=== PATIENT | female | born 1980 | race Caucasian/White ===

== ENCOUNTER 2016-10-08 18:51 | Inpatient (IN) | payer BC ==
[2016-10-08] MEDS ORDERED: ceFAZolin 2 GM in Sodium Chloride 0.9% 100 ML IV ONE (19:45)
[2016-10-08] MEDS ORDERED: Sodium Chloride 0.9% 10 ML Syringe FLUSH PRN (19:45)
[2016-10-08] MEDS ORDERED: Ondansetron 4 MG/2 ML SDV IVPUSH ONE (20:10)
[2016-10-08] MEDS ORDERED: Dexamethasone 4 MG/ML 5 ML MDV IVPUSH ONE (20:10)
[2016-10-08] MEDS ORDERED: Lactated Ringers 1,000 ML IV ONE (20:10)
[2016-10-08] MEDS ORDERED: Ketorolac 30 MG/ML SDV IVPUSH ONE (20:10)
[2016-10-08] MEDS ORDERED: ceFAZolin 1 GM Vial IV ONE (20:10)
[2016-10-08] MEDS ORDERED: Lidocaine 2% 100 MG/5 ML Syringe IVPUSH ONE (20:10)
[2016-10-08] MEDS ORDERED: Rocuronium 50 MG/5 ML Vial IV ONE (20:10)
[2016-10-08] MEDS ORDERED: fentaNYL 100 MCG/2 ML SDV IV ONE (20:10)
[2016-10-08] MEDS ORDERED: Midazolam 1 MG/ML 2 ML SDV IV ONE (20:10)
[2016-10-08] MEDS ORDERED: Propofol 200 MG/20 ML SDV IV ONE (20:10)
[2016-10-08] MEDS ORDERED: HYDROmorphone 2 MG/ML SDV IV ONE (20:10)
[2016-10-08] MEDS ORDERED: Bupivacaine 0.5%/EPINEPHrine 1:200,000 50 ML MDV ONE (20:33)
[2016-10-08] MEDS ORDERED: Acetaminophen/HYDROcodone 325-5 MG Tab PO PRN ×2 (23:06)
[2016-10-08] MEDS ORDERED: Ondansetron 4 MG/2 ML SDV IVPUSH PRN (23:06)
--- NOTE | 2016-10-08 23:06 | PCM.OPNOTE ---
- General Post-Op/Procedure Note Date of Surgery/Procedure: 10/08/16 Operative Procedure(s): Laproscopic Cholecystectomy Findings: Severely acutely inflamed gallbladder with stones Pre Op Diagnosis: Acute Cholecystitis with Cholelithiasis Post-Op Diagnosis: Same Anesthesia Technique: General ET tube Primary Surgeon: Bassam Alvarado Pathology: Gallbladder with stones Output, Urine Amount: 0 EBL in mLs: 50 Complications: None Condition: Good Free Text/Narrative:: Intake & Output 10/08/16 10/08/16 10/09/16 14:59 22:59 06:59 Intake Total 1000 Output Total 30 Balance 970
[2016-10-08] MEDS ORDERED: Lactated Ringers 1,000 ML IV SCH (23:15)
[2016-10-08] MEDS: Lactated Ringers 1,000 ML IV SCH (23:43)
[2016-10-09] MEDS: levETIRAcetam 500 MG Tab PO SCH ×2 (00:11→10:00)
[2016-10-09] MEDS: lamoTRIgine 100 MG Tab PO SCH ×2 (00:12→10:00)
[2016-10-09] MEDS: Piperacillin/Tazobactam 3.375 GM in Sodium Chloride 0.9% 50 ML IV SCH ×3 (00:22→12:48)
--- NOTE | 2016-10-09 03:31 | OR ---
DATE OF OPERATION: 10/08/2016 SURGEON: Bassam Alvarado MD PREOPERATIVE DIAGNOSIS: Acute cholecystitis with cholelithiasis. POSTOPERATIVE DIAGNOSIS: Acute cholecystitis with cholelithiasis. OPERATION PERFORMED: Laparoscopic cholecystectomy. INDICATIONS FOR SURGERY: This 36-year-old female presented to the outpatient clinic with a 2-day history of right upper quadrant abdominal pain which had gotten much worse today. Workup has identified findings consistent with acute cholecystitis with cholelithiasis on CT scan and she has an elevated serum white blood cell count along with severe right upper quadrant pain and tenderness. FINDINGS: The patient's gallbladder is severely acutely inflamed. It is dilated and contains multiple stones both small and large. The omentum is firmly adherent to the entire undersurface of the gallbladder as well as the undersurface of the liver to the left side of the gallbladder. Some of these adhesions are dense and very vascular. No other intraabdominal organs are noted to be abnormal on exam. PROCEDURE IN DETAIL: The patient was taken to the operating room. She was given general endotracheal anesthesia and the abdomen was sterilely prepped and draped. An infraumbilical stab wound incision was made. Through this, a Veress needle was inserted and pneumoperitoneum via this needle to a pressure of 15 mmHg was achieved with carbon dioxide. The Veress needle was then replaced with a 12 mm trocar into which the 5 mm variable angled laparoscopic camera was inserted. Under direct visualization, 5 mm trocars were placed in the subxiphoid midline and in 2 areas of the right abdomen. All trocar sites were infiltrated with Marcaine prior to incision. Intra-abdominal inspection was carried out and attention was turned to the gallbladder. The upper portion of the gallbladder is exposed by carefully freeing the dense omental adhesions from its undersurface. The gallbladder was quite distended and tense and it is decompressed with a needle to allow it to be able to be grasped and manipulate it. Continued careful dissection was then carried out gradually freeing the omentum from the undersurface of the liver using careful blunt and cautery dissection. This took a prolonged period of time to safely perform this, but eventually, the omentum was freed from the undersurface adjacent to the gallbladder so that the gallbladder could be completely exposed. Dissection at the base of the gallbladder identified the cystic duct and additional dissection identified the area of the cystic artery. This tissue was very inflamed, dissection was difficult, and in order to safely expose the cystic artery so that it could be clipped, the cystic duct had to be divided first. Careful dissection positively identified the cystic duct including its junction with the gallbladder. The cystic duct was then milked and doubly clipped and divided right at its junction with the gallbladder. This allowed enough mobilization of the gallbladder, so that the cystic artery could be identified, clipped, and divided maintaining good hemostasis while doing this. Once the cystic artery was secured and divided, the gallbladder was dissected free from the undersurface of the liver using the cautery device. Because of the severe inflammation, this also was somewhat difficult, but eventually was able to be safely accomplished with the gallbladder being completely removed. It was placed into an endo retrieval bag and then extracted through the umbilical trocar site without spillage of any stones intra-abdominally. Reinspection of the gallbladder bed was performed and copious irrigation of the operative region was carried out. No evidence of any bleeding or other complication was noted. After the irrigation had been performed, the trocars were removed under direct visualization and the pneumoperitoneum was evacuated. The fascia at the umbilical trocar site was closed with a [id number] 0 Vicryl suture. Wounds were irrigated with Betadine and saline solution. Skin incisions were approximated with interrupted 4-0 Vicryl in a subcuticular stitch, Steri-Strips, and Benzoin. Antibiotic ointment and sterile dressings were placed. The patient was then awakened, extubated, and taken from the operating room in satisfactory condition. ESTIMATED BLOOD LOSS: 50 mL. COMPLICATIONS: None. PROGNOSIS: Good. /[id number] MYAH/YAZ
[2016-10-09] MEDS: Lactated Ringers 1,000 ML IV SCH (04:31)
[2016-10-09] MEDS: Morphine 2 MG/ML Syringe IVPUSH PRN ×2 (04:36→05:44)
[2016-10-09 08:43] VITALS: BP 100/65
--- NOTE | 2016-10-09 09:41 | PCM.SURGPN ---
- General Info Date of Service: 10/09/16 Date of Surgery/Procedure: 10/08/16 POD#: 1 Post-Op Diagnosis: Acute Cholecystitis with Cholelithiasis Functional Status: Reports: other (Pain much better then preop but still using Morphine for pain control) - Review of Systems Pulmonary: Reports: other (some chest pressure with deep breaths) Gastrointestinal: Denies: Nausea, Vomiting Musculoskeletal: Reports: no symptoms - Patient Data Vitals - most recent: Last Vital Signs Temp 98.6 F 10/09/16 08:39 Pulse 75 10/09/16 08:39 Resp 18 10/09/16 08:39 BP 100/65 10/09/16 08:39 Pulse Ox 98 10/09/16 08:39 Weight - most recent: 198 lb 2 oz I&O - last 24 hours: Intake & Output 10/08/16 10/09/16 10/09/16 22:59 06:59 14:59 Intake Total 1000 450 Output Total 30 400 500 Balance 970 -400 -50 Lab Results last 24 hrs: Laboratory Results - last 24 hr 10/08/16 10/09/16 10/09/16 Range/Units 19:15 06:20 06:20 WBC 14.1 H (4.5-12.0) X10-3/uL RBC 4.18 (3.23-5.20) x10(6)uL Hgb 12.5 (11.5-15.5) g/dL Hct 37.0 (30.0-51.3) % MCV 88.7 (80-96) fL MCH 29.8 (27.7-33.6) pg MCHC 33.6 (32.2-35.4) g/dL RDW 13.0 (11.5-15.5) % Plt Count 252 (125-369) X10(3)uL MPV 8.2 (7.4-10.4) fL Add Manual Diff Yes Neutrophils % (Manual) 89 H (46-82) % Band Neutrophils % 1 (0-6) % Lymphocytes % (Manual) 7 L (13-37) % Monocytes % (Manual) 3 L (4-12) % Toxic Granulation Few H (NOT SEEN) Sodium 136 (135-145) mmol/L Potassium 4.2 (3.5-5.3) mmol/L Chloride 105 (100-110) mmol/L Carbon Dioxide 24 (23-29) mmol/L BUN 10 (5-20) mg/dL Creatinine 0.7 (0.6-1.3) mg/dL Est Cr Clr Drug Dosing 99.98 mL/min Estimated GFR (MDRD) > 60 (>60) BUN/Creatinine Ratio 14.3 (9-20) Glucose 146 H (80-116) mg/dL Calcium 8.8 (8.6-10.2) mg/dL Total Bilirubin 0.9 (0.1-1.3) mg/dL AST 27 D (5-27) IU/L ALT 24 (14-26) IU/L Alkaline Phosphatase 41 L (56-112) IU/L Total Protein 6.2 (6.0-8.0) g/dL Albumin 3.4 L (3.5-5.2) g/dL Globulin 2.8 g/dL Albumin/Globulin Ratio 1.2 Urine HCG, Qual Negative (NEGATIVE) Med Orders - Current: Current Medications Hydrocodone Bitart/Acetaminophen ([place] 325-5 Mg) 1 tab PO Q4H PRN PRN Reason: Pain (mild 1-3) Last Admin: 10/09/16 08:18 Dose: 1 tab Hydrocodone Bitart/Acetaminophen ([place] 325-5 Mg) 2 tab PO Q4H PRN PRN Reason: Pain (moderate 4-6) Lactated Ringer's (Ringers, Lactated) 1,000 mls @ 125 mls/hr IV ASDIRECTED [facility] Last Admin: 10/09/16 04:31 Dose: 125 mls/hr Lactated Ringer's (Ringers, Lactated) 1,000 mls @ 50 mls/hr IV ASDIRECTED [facility] Piperacillin Sod/Tazobactam (Sod 3.375 gm/ Sodium Chloride) 50 mls @ 100 mls/ hr IV Q6H [facility] Last Admin: 10/09/16 05:00 Dose: 100 mls/hr Lamotrigine (Lamotrigine) 150 mg PO BID [facility] Last Admin: 10/09/16 00:12 Dose: Not Given Levetiracetam (Keppra) 500 mg PO DAILY [facility] Last Admin: 10/09/16 00:11 Dose: Not Given Morphine Sulfate (Morphine) 2 mg IVPUSH Q1H PRN PRN Reason: Pain (severe 7-10) Last Admin: 10/09/16 05:44 Dose: 2 mg Ondansetron HCl (Zofran) 4 mg IVPUSH Q6H PRN PRN Reason: Nausea/Vomiting Sodium Chloride (Saline Flush) 10 ml FLUSH ASDIRECTED PRN PRN Reason: Keep Vein Open Discontinued Medications Bupivacaine HCl/Epinephrine Bitart (Marcaine 0.5%/Epinephrine 1:200,000) 20 ml .XX .STK-MED ONE Stop: 10/08/16 20:34 Last Admin: 10/08/16 20:33 Dose: 20 ml Cefazolin Sodium 2 gm/ Sodium (Chloride) 100 mls @ 200 mls/hr IV ONETIME ONE Stop: 10/08/16 20:14 Last Admin: 10/08/16 20:41 Dose: Not Given - Exam Wound/Incisions: dressing dry and intact General: alert, oriented Lungs: Normal respiratory effort Abdomen: soft, tenderness (moderate tenderness diffusely) Extremities: no tenderness/swelling - Problem List Review Problem List Initiated/Reviewed/Updated: Yes - My Orders Last 24 Hours: Active Orders 24 hr Category Date Time Status Patient Status [ADT] Routine ADT 10/08/16 23:06 Active Ambulate [RC] ASDIRECTED Care 10/08/16 23:06 Active Antiembolic Devices [RC] .Routine Care 10/08/16 23:10 Active Intake and Output [RC] QSHIFT Care 10/08/16 23:08 Active Oxygen Therapy [RC] PRN Care 10/08/16 23:06 Active RT Incentive Spirometry [RC] Q1HWA Care 10/08/16 23:06 Active Vital Signs [RC] PER UNIT ROUTINE Care 10/08/16 23:06 Active Full Liquid Diet [DIET] Diet 10/09/16 Breakfast Ordered Acetaminophen/HYDROcodone [[place] 325-5 MG] Med 10/08/16 23:06 Active 1 tab PO Q4H PRN Acetaminophen/HYDROcodone [[place] 325-5 MG] Med 10/08/16 23:06 Active 2 tab PO Q4H PRN Lactated Ringers [Ringers, Lactated] 1,000 ml Med 10/08/16 19:45 Active IV ASDIRECTED Lactated Ringers [Ringers, Lactated] 1,000 ml Med 10/08/16 23:15 Active IV ASDIRECTED Morphine Med 10/08/16 23:06 Active 2 mg IVPUSH Q1H PRN Ondansetron [Zofran] Med 10/08/16 23:06 Active 4 mg IVPUSH Q6H PRN Piperacillin/Tazobactam [Zosyn] 3.375 gm Med 10/09/16 00:00 Active Sodium Chloride 0.9% [Normal Saline] 50 ml IV Q6H Sodium Chloride 0.9% [Saline Flush] Med 10/08/16 19:45 Active 10 ml FLUSH ASDIRECTED PRN lamoTRIgine Med 10/08/16 23:15 Active 150 mg PO BID levETIRAcetam [Keppra] Med 10/08/16 23:15 Active 500 mg PO DAILY DVT/VTE Prophylaxis Reflex [OM.PC] Per Unit Routine Oth 10/08/16 23:10 Ordered Peripheral IV Insertion Adult [OM.PC] Routine Oth 10/08/16 19:45 Ordered Sequential Compression Device [OM.PC] Routine Oth 10/08/16 19:45 Ordered Sequential Compression Device [OM.PC] Routine Oth 10/08/16 23:06 Ordered Resuscitation Status Routine Resus Stat 10/08/16 19:45 Ordered Medication Orders Hydrocodone Bitart/Acetaminophen ([place] 325-5 Mg) 1 tab PO Q4H PRN PRN Reason: Pain (mild 1-3) Last Admin: 10/09/16 08:18 Dose: 1 tab Hydrocodone Bitart/Acetaminophen ([place] 325-5 Mg) 2 tab PO Q4H PRN PRN Reason: Pain (moderate 4-6) Lactated Ringer's (Ringers, Lactated) 1,000 mls @ 125 mls/hr IV ASDIRECTED [facility] Last Admin: 10/09/16 04:31 Dose: 125 mls/hr Infusion: 10/09/16 04:31 Dose: 125 mls/hr Admin: 10/08/16 23:43 Dose: 125 mls/hr Lactated Ringer's (Ringers, Lactated) 1,000 mls @ 50 mls/hr IV ASDIRECTED [facility] Piperacillin Sod/Tazobactam (Sod 3.375 gm/ Sodium Chloride) 50 mls @ 100 mls/ hr IV Q6H [facility] Last Admin: 10/09/16 05:00 Dose: 100 mls/hr Admin: 10/09/16 00:22 Dose: 100 mls/hr Lamotrigine (Lamotrigine) 150 mg PO BID [facility] Last Admin: 10/09/16 00:12 Dose: Levetiracetam (Keppra) 500 mg PO DAILY [facility] Last Admin: 10/09/16 00:11 Dose: Not Given Morphine Sulfate (Morphine) 2 mg IVPUSH Q1H PRN PRN Reason: Pain (severe 7-10) Last Admin: 10/09/16 05:44 Dose: 2 mg Admin: 10/09/16 04:36 Dose: 2 mg Ondansetron HCl (Zofran) 4 mg IVPUSH Q6H PRN PRN Reason: Nausea/Vomiting Sodium Chloride (Saline Flush) 10 ml FLUSH ASDIRECTED PRN PRN Reason: Keep Vein Open - Assessment Assessment (Free Text/Narrative):: Stable POD#1 from [facility] for severe acute cholecystitis still not eating well and using IV pain medication - Plan Plan (Free Text/Narrative):: Try to advance diet slow IV trial or PO pain medication continue antibiotics
--- NOTE | 2016-10-09 15:49 | PCM.SURGPN ---
- General Info Date of Service: 10/09/16 Date of Surgery/Procedure: 10/08/16 Functional Status: Reports: pain controlled (tolerting it well with oral agents) - Review of Systems Gastrointestinal: Reports: Other (tolerating light diet well). Denies: Nausea, Vomiting - Patient Data Vitals - most recent: Last Vital Signs Temp 98.6 F 10/09/16 08:39 Pulse 75 10/09/16 08:39 Resp 18 10/09/16 08:39 BP 100/65 10/09/16 08:39 Pulse Ox 98 10/09/16 08:39 Weight - most recent: 198 lb 2 oz I&O - last 24 hours: Intake & Output 10/09/16 10/09/16 10/09/16 06:59 14:59 22:59 Intake Total 450 Output Total 400 500 Balance -400 -50 Lab Results last 24 hrs: Laboratory Results - last 24 hr 10/08/16 10/09/16 10/09/16 Range/Units 19:15 06:20 06:20 WBC 14.1 H (4.5-12.0) X10-3/uL RBC 4.18 (3.23-5.20) x10(6)uL Hgb 12.5 (11.5-15.5) g/dL Hct 37.0 (30.0-51.3) % MCV 88.7 (80-96) fL MCH 29.8 (27.7-33.6) pg MCHC 33.6 (32.2-35.4) g/dL RDW 13.0 (11.5-15.5) % Plt Count 252 (125-369) X10(3)uL MPV 8.2 (7.4-10.4) fL Add Manual Diff Yes Neutrophils % (Manual) 89 H (46-82) % Band Neutrophils % 1 (0-6) % Lymphocytes % (Manual) 7 L (13-37) % Monocytes % (Manual) 3 L (4-12) % Toxic Granulation Few H (NOT SEEN) Sodium 136 (135-145) mmol/L Potassium 4.2 (3.5-5.3) mmol/L Chloride 105 (100-110) mmol/L Carbon Dioxide 24 (23-29) mmol/L BUN 10 (5-20) mg/dL Creatinine 0.7 (0.6-1.3) mg/dL Est Cr Clr Drug Dosing 99.98 mL/min Estimated GFR (MDRD) > 60 (>60) BUN/Creatinine Ratio 14.3 (9-20) Glucose 146 H (80-116) mg/dL Calcium 8.8 (8.6-10.2) mg/dL Total Bilirubin 0.9 (0.1-1.3) mg/dL AST 27 D (5-27) IU/L ALT 24 (14-26) IU/L Alkaline Phosphatase 41 L (56-112) IU/L Total Protein 6.2 (6.0-8.0) g/dL Albumin 3.4 L (3.5-5.2) g/dL Globulin 2.8 g/dL Albumin/Globulin Ratio 1.2 Urine HCG, Qual Negative (NEGATIVE) Med Orders - Current: Current Medications Hydrocodone Bitart/Acetaminophen ([place] 325-5 Mg) 1 tab PO Q4H PRN PRN Reason: Pain (mild 1-3) Last Admin: 10/09/16 08:18 Dose: 1 tab Hydrocodone Bitart/Acetaminophen ([place] 325-5 Mg) 2 tab PO Q4H PRN PRN Reason: Pain (moderate 4-6) Last Admin: 10/09/16 13:55 Dose: 2 tab Lactated Ringer's (Ringers, Lactated) 1,000 mls @ 125 mls/hr IV ASDIRECTED [facility] Last Admin: 10/09/16 04:31 Dose: 125 mls/hr Lactated Ringer's (Ringers, Lactated) 1,000 mls @ 50 mls/hr IV ASDIRECTED [facility] Piperacillin Sod/Tazobactam (Sod 3.375 gm/ Sodium Chloride) 50 mls @ 100 mls/ hr IV Q6H [facility] Last Admin: 10/09/16 12:48 Dose: 100 mls/hr Lamotrigine (Lamotrigine) 150 mg PO BID [facility] Last Admin: 10/09/16 10:00 Dose: 150 mg Levetiracetam (Keppra) 500 mg PO DAILY [facility] Last Admin: 10/09/16 10:00 Dose: 500 mg Morphine Sulfate (Morphine) 2 mg IVPUSH Q1H PRN PRN Reason: Pain (severe 7-10) Last Admin: 10/09/16 05:44 Dose: 2 mg Ondansetron HCl (Zofran) 4 mg IVPUSH Q6H PRN PRN Reason: Nausea/Vomiting Sodium Chloride (Saline Flush) 10 ml FLUSH ASDIRECTED PRN PRN Reason: Keep Vein Open Discontinued Medications Bupivacaine HCl/Epinephrine Bitart (Marcaine 0.5%/Epinephrine 1:200,000) 20 ml .XX .STK-MED ONE Stop: 10/08/16 20:34 Last Admin: 10/08/16 20:33 Dose: 20 ml Cefazolin Sodium 2 gm/ Sodium (Chloride) 100 mls @ 200 mls/hr IV ONETIME ONE Stop: 10/08/16 20:14 Last Admin: 10/08/16 20:41 Dose: Not Given Piperacillin Sod/Tazobactam Sod (Zosyn) Confirm Administered Dose 3.375 gm .ROUTE .STK-MED ONE Stop: 10/09/16 12:24 Last Admin: 10/09/16 13:54 Dose: Not Given - Exam Wound/Incisions: healing well, drainage (minimal). No: erythema General: alert, oriented Abdomen: soft, tenderness (mild in RUQ otherwise non tender) - Problem List Review Problem List Initiated/Reviewed/Updated: Yes - My Orders Last 24 Hours: Active Orders 24 hr Category Date Time Status Patient Status [ADT] Routine ADT 10/08/16 23:06 Active Ambulate [RC] ASDIRECTED Care 10/08/16 23:06 Active Antiembolic Devices [RC] .Routine Care 10/08/16 23:10 Active Intake and Output [RC] QSHIFT Care 10/08/16 23:08 Active Oxygen Therapy [RC] PRN Care 10/08/16 23:06 Active RT Incentive Spirometry [RC] Q1HWA Care 10/08/16 23:06 Active Ready for Discharge [RC] PER UNIT ROUTINE Care 10/09/16 15:46 Ordered Vital Signs [RC] PER UNIT ROUTINE Care 10/08/16 23:06 Active Full Liquid Diet [DIET] Diet 10/09/16 Breakfast Active Acetaminophen/HYDROcodone [[place] 325-5 MG] Med 10/08/16 23:06 Active 1 tab PO Q4H PRN Acetaminophen/HYDROcodone [[place] 325-5 MG] Med 10/08/16 23:06 Active 2 tab PO Q4H PRN Lactated Ringers [Ringers, Lactated] 1,000 ml Med 10/08/16 19:45 Active IV ASDIRECTED Lactated Ringers [Ringers, Lactated] 1,000 ml Med 10/08/16 23:15 Active IV ASDIRECTED Morphine Med 10/08/16 23:06 Active 2 mg IVPUSH Q1H PRN Ondansetron [Zofran] Med 10/08/16 23:06 Active 4 mg IVPUSH Q6H PRN Piperacillin/Tazobactam [Zosyn] 3.375 gm Med 10/09/16 00:00 Active Sodium Chloride 0.9% [Normal Saline] 50 ml IV Q6H Sodium Chloride 0.9% [Saline Flush] Med 10/08/16 19:45 Active 10 ml FLUSH ASDIRECTED PRN lamoTRIgine Med 10/08/16 23:15 Active 150 mg PO BID levETIRAcetam [Keppra] Med 10/08/16 23:15 Active 500 mg PO DAILY DVT/VTE Prophylaxis Reflex [OM.PC] Per Unit Routine Oth 10/08/16 23:10 Ordered Peripheral IV Insertion Adult [OM.PC] Routine Oth 10/08/16 19:45 Ordered Sequential Compression Device [OM.PC] Routine Oth 10/08/16 19:45 Ordered Sequential Compression Device [OM.PC] Routine Oth 10/08/16 23:06 Ordered Resuscitation Status Routine Resus Stat 10/08/16 19:45 Ordered Medication Orders Hydrocodone Bitart/Acetaminophen ([place] 325-5 Mg) 1 tab PO Q4H PRN PRN Reason: Pain (mild 1-3) Last Admin: 10/09/16 08:18 Dose: 1 tab Hydrocodone Bitart/Acetaminophen ([place] 325-5 Mg) 2 tab PO Q4H PRN PRN Reason: Pain (moderate 4-6) Last Admin: 10/09/16 13:55 Dose: 2 tab Lactated Ringer's (Ringers, Lactated) 1,000 mls @ 125 mls/hr IV ASDIRECTED [facility] Last Admin: 10/09/16 04:31 Dose: 125 mls/hr Infusion: 10/09/16 04:31 Dose: 125 mls/hr Admin: 10/08/16 23:43 Dose: 125 mls/hr Lactated Ringer's (Ringers, Lactated) 1,000 mls @ 50 mls/hr IV ASDIRECTED [facility] Piperacillin Sod/Tazobactam (Sod 3.375 gm/ Sodium Chloride) 50 mls @ 100 mls/ hr IV Q6H [facility] Last Admin: 10/09/16 12:48 Dose: 100 mls/hr Admin: 10/09/16 05:00 Dose: 100 mls/hr Admin: 10/09/16 00:22 Dose: 100 mls/hr Lamotrigine (Lamotrigine) 150 mg PO BID [facility] Last Admin: 10/09/16 10:00 Dose: 150 mg Admin: 10/09/16 00:12 Dose: Levetiracetam (Keppra) 500 mg PO DAILY [facility] Last Admin: 10/09/16 10:00 Dose: 500 mg Admin: 10/09/16 00:11 Dose: Not Given Morphine Sulfate (Morphine) 2 mg IVPUSH Q1H PRN PRN Reason: Pain (severe 7-10) Last Admin: 10/09/16 05:44 Dose: 2 mg Admin: 10/09/16 04:36 Dose: 2 mg Ondansetron HCl (Zofran) 4 mg IVPUSH Q6H PRN PRN Reason: Nausea/Vomiting Sodium Chloride (Saline Flush) 10 ml FLUSH ASDIRECTED PRN PRN Reason: Keep Vein Open - Assessment Assessment (Free Text/Narrative):: Doing well POD#1 from [facility] - Plan Plan (Free Text/Narrative):: Discharge RTC about 1 week
== END 2016-10-09 16:30 | disposition home or self-care (01) | DRG 263 ==
LOC: FB.SDS 18:51 → FB.MS 18:54 → FB.SDS 19:45 → MERGE 19:45
PROVIDERS: ADMIT Surgery; ATTEND Surgery
PROC: 0FT44ZZ Resection of Gallbladder, Percutaneous Endoscopic Approach (ICD-10-PCS; principal; 2016-10-08)
DX: K80.00 Calculus of gallbladder with acute cholecystitis without obstruction (principal); R10.11 Right upper quadrant pain
CPT/HCPCS: 36415; 74176; 80053; 81025; 85025; 88304; 94150; A9270-GY; J0690; J1100; J1170; J1885; J2250; J2270; J2405; J2543; J2704; J3010; J7050; J7120